=== PATIENT | male | born 1970 ===

== ENCOUNTER → 2021-10-15 | Outpatient (CLI) | payer OTHER ==
[~2021-10-15] MED LIST: IOHEXOL 350 MG/ML 100ML IJ ONE
[2021-10-15 08:34] LABS: BUN/Creatinine Ratio 16.1; Calcium 8.5 mg/dL (8.5-10.1); Potassium 5.2 mmol/L (3.5-5.1)
== END | disposition home or self-care (01) ==
LOC: CT 07:55
DX: I70.0 Atherosclerosis of aorta (principal); Z95.4 Presence of other heart-valve replacement
CPT/HCPCS: 36415; 71275; 80048; Q9967